=== PATIENT | female | born 1955 | race Caucasian/White ===

== ENCOUNTER 2016-12-24 16:40 | Inpatient (IN) ==
--- NOTE | 2016-12-24 19:55 | Emergency Department Note ---
Marcelo Maurer Brittany, am scribing for, and in the presence of, Jim Maciel MD 19:49. Raheem Maurer Robert M, MD, personally performed the services described in this documentation, ascribed by Sheba Robertson in my presence, and it is both accurate and complete [id number] . Arrival - Arrival Chief Complaint: Abdominal / Flank Pain Stated Complaint: stomach ache scale of 10 ED Nursing Triage Note: Pt c/o abd pain since back in November became worse today after she ate lunch. Mode of Arrival: Ambulatory Limitations: No Limitations Source: Patient, RN Notes Reviewed - History of Present Illness HPI Narrative: Patient is a 61 y/o white female presenting to the ED with c/o generalized abdominal pain with an onset of a month, worsening today. Patient reports that throughout this duration of pain, she has had two days with which she has had no pain. She states that during her mother's stay here she had a meal downstairs which caused her to have excruciating abdominal pain thereafter. She has seen her PCP about this pain and has been instructed to try Milk of Magnesia and Pepto Bismol, but neither of these have given her any relief. She reports having some melena type stools, but states that PCP told her these were a result of the Pepto Bismol. She has not had a CT Abdomen/Pelvis performed. Patient reports a history of Appendectomy, Total Hysterectomy. She denies history of Cholecystectomy. Patient has no other complaint/pain. Onset (ago): month(s) (1) Consistency: intermittent Severity: moderate Severity scale (1-10): 6 Quality: aching Allergies/Adverse Reactions: Allergies Allergy/AdvReac Type Severity Reaction Status Date / Time cephalexin [From Keflex] Allergy HIVES Verified 09/22/15 13:21 Hydromorphone Allergy Flushing Verified 09/22/15 13:21 [From Exalgo ER] Sulfa (Sulfonamide Allergy HIVES Verified 09/22/15 13:21 Antibiotics) Home Medications: Home Medications Medication Instructions Recorded Confirmed Type ARIPiprazole [Abilify] 5 mg PO BEDTIME 09/22/15 12/24/16 History Benazepril/Hydrochlorothiazide 1 each PO DAILY 09/22/15 12/24/16 History [Benazepril-Hctz 10-12.5 mg Tab] Duloxetine HCl [Duloxetine] 30 mg PO DAILY 09/22/15 12/24/16 History Gabapentin [Gabapentin] 600 mg PO QID 09/22/15 12/24/16 History Hydrocodone/Acetaminophen 1 each PO QID PRN 09/22/15 12/24/16 History [Hydrocodon-Acetaminophn 10-325] Meloxicam [Mobic] 15 mg PO DAILY 09/22/15 12/24/16 History Quetiapine Fumarate [Quetiapine 100 mg PO BEDTIME 09/22/15 12/24/16 History Fumarate] Rosuvastatin [Crestor] 10 mg PO DAILY 09/22/15 12/24/16 History Saxagliptin HCl/Metformin HCl 1 each PO BID 09/22/15 12/24/16 History [Kombiglyze Xr 2.5-1,000 mg Tab] buPROPion HCl [Bupropion Xl] 300 mg PO DAILY 09/22/15 12/24/16 History clonazePAM TAB [KlonoPIN] 0.5 mg PO TID 12/24/16 12/24/16 History Review of System - Review of System 12 point system: reviewed and no additional remarkable complaints except as stated - Review of System Constitutional: Absent: chills, fever Eyes: Absent: vision change Head/Ears/Nose/Throat: Absent: nasal drainage, sore throat Respiratory: Absent: respiratory distress Cardiovascular: Absent: chest pain, palpitations Gastrointestinal: Present: abdominal pain, melena. Absent: nausea, vomiting, diarrhea, constipation Genitourinary female: Absent: dysuria, frequency, urgency Musculoskeletal: Present: back pain. Absent: arm pain, neck pain Skin: Absent: rash Neurological: Absent: headache Psychiatric: Absent: anxiety, depression Hematological/Lymphatic: Absent: easy bleeding, easy bruising Medical,Surgical,& Family Hx - Medical History Cardio: History of: Hypertension Neurology: No history of: Seizures Endocrine: History of: Diabetes Mellitus (NIDDM) Musculoskeletal: History of: Back/Neck Problems - Surgical History Reproductive Surgeries: Surgical HX of;: Hysterectomy Orthopedic Surgeries: Surgical HX of;: Orthopedic Surgery (bilateral shoulder) - Social History Smoking Status: Never smoker Exam Vital Signs: Vital Signs Temperature 97.3 F L 12/24/16 20:09 Pulse Rate 81 12/24/16 20:09 Respiratory Rate 18 12/24/16 20:09 Blood Pressure 131/74 12/24/16 20:09 O2 Sat by Pulse Oximetry 100 12/24/16 16:54 - General General appearance: alert, in no apparent distress - Head Head exam: Present: atraumatic, normocephalic, normal inspection - Eye Eye exam: Present: normal appearance, PERRL, EOMI - ENT ENT exam: Present: normal exam, normal oropharynx - Neck Neck exam: Present: normal inspection, full ROM, trachea midline - Chest Chest inspection: Present: normal inspection, symmetric chest wall rise - Respiratory Respiratory exam: Present: normal lung sounds bilaterally. Absent: rales, rhonchi, wheezes - Cardiovascular Cardiovascular exam: Present: regular rate, normal rhythm, normal heart sounds. Absent: murmur, rubs, gallop - Abdominal Exam Abdominal exam: Present: soft, normal bowel sounds. Absent: distention, tenderness - Extremities Exam Extremities exam: Present: normal inspection - Back Exam Back exam: Present: normal inspection - Neurological Exam Neurological exam: Present: alert, oriented X3, CN II-XII intact. Absent: motor sensory deficit - Psychiatric Psychiatric exam: Present: normal affect, normal mood - Skin Skin exam: Present: warm, dry, intact, normal color Course - Consultations Consultation #1: Dr. Narinder Mo was paged and will evaluate the patient for admission. Time: 21:47 Results - Labs CBC & BMP: 12/24/16 19:55 12/24/16 19:55 Lab Results: I have reviewed the patients labs Labs: Lab Results WBC 11.4 T/CUMM (4-12) 12/24/16 19:55 RBC 3.07 MC/CUMM (3.8-5.5) L 12/24/16 19:55 Hgb 8.6 GM/DL (12.0-16.0) L 12/24/16 19:55 Hct 26.6 VOL% (35.7-47.0) L 12/24/16 19:55 MCV 86.6 FL (87-102) L 12/24/16 19:55 MCH 28 PG (27-34) 12/24/16 19:55 MCHC 32.3 GM/DL (32-36) 12/24/16 19:55 RDW 13.6 % (9.3-17.3) 12/24/16 19:55 Plt Count 609 T/CUMM (130-400) H 12/24/16 19:55 MPV 9.5 FL (9.6-12.0) L 12/24/16 19:55 Neut % (Auto) 72.4 % (38.7-73.9) 12/24/16 19:55 Lymph % (Auto) 17.5 % (21.3-54.2) L 12/24/16 19:55 [place] % (Auto) 5.9 % (1.7-12.7) 12/24/16 19:55 Eos % (Auto) 3.1 % (0.00-10.9) 12/24/16 19:55 Baso % (Auto) 0.5 % (0.0-0.8) 12/24/16 19:55 Neut # (Auto) 8.3 10*3/uL (1.4-7.4) H 12/24/16 19:55 Lymph # (Auto) 2.0 10*3/uL (1.4-4.0) 12/24/16 19:55 [place] # (Auto) 0.7 10*3/uL (0.11-0.8) 12/24/16 19:55 Eos # (Auto) 0.4 10*3/uL (0.0-0.87) 12/24/16 19:55 Baso # (Auto) 0.1 10*3/uL (0.0-0.2) 12/24/16 19:55 Immature Gran % 0.6 % 12/24/16 19:55 Nucleated RBC % 0.0 /100WBC 12/24/16 19:55 Immature Gran # 0.07 # 12/24/16 19:55 Nucleated RBCs # 0.00 10*3/uL 12/24/16 19:55 Sodium 141 MMOL/L (136-145) 12/24/16 19:55 Potassium 3.5 MMOL/L (3.5-5.1) 12/24/16 19:55 Chloride 104 MMOL/L (98-107) 12/24/16 19:55 Carbon Dioxide 25 MMOL/L (21-32) 12/24/16 19:55 Anion Gap 15.5 MMOL/L (5.0-15.0) H 12/24/16 19:55 BUN 14 MG/DL (7-18) 12/24/16 19:55 Creatinine 0.90 MG/DL (0.55-1.02) 12/24/16 19:55 GFR Calculation 64 ML/MIN 12/24/16 19:55 BUN/Creatinine Ratio 15.00 RATIO (6.00-20.00) 12/24/16 19:55 Glucose 131 MG/DL (74-106) H 12/24/16 19:55 Calculated Osmolality 283.3 MOS/KG (273-304) 12/24/16 19:55 Calcium 9.0 MG/DL (8.5-10.1) 12/24/16 19:55 Magnesium 2.0 MG/DL (1.8-2.4) 12/24/16 19:55 Amylase 45 U/L (25-115) 12/24/16 19:55 Lipase 318.0 U/L (73-393) 12/24/16 19:55 Urine Color Straw (Yellow) 12/24/16 19:55 Urine Appearance Clear (Clear) 12/24/16 19:55 Urine pH 5.0 (4.5-8.0) 12/24/16 19:55 Ur Specific [place] 1.010 (1.001-1.035) 12/24/16 19:55 Urine Protein Negative MG/DL 12/24/16 19:55 Urine Glucose (UA) Negative mg/dL (Negative) 12/24/16 19:55 Urine Ketones Negative mg/dL (Negative) 12/24/16 19:55 Urine Blood Moderate mg/dL (Negative) 12/24/16 19:55 Urine Nitrate Negative (Negative) 12/24/16 19:55 Urine Bilirubin Negative mg/dL (Negative) 12/24/16 19:55 Urine Urobilinogen < 2.0 EU/DL (0.2-1.0) H 12/24/16 19:55 Urine Leukocytes Small Issac/ul (Negative) H 12/24/16 19:55 Urine RBC 3 /HPF (0-4) 12/24/16 19:55 Urine WBC 10 /HPF (0-6) 12/24/16 19:55 Ur Squamous Epith Cells Occasional /HPF (0-10) 12/24/16 19:55 Ur Transition Epith Cell Occasional /HPF (<1) 12/24/16 19:55 Urine Bacteria Few /HPF (Few) 12/24/16 19:55 Urine Mucus Occasional /LPF (Occasional) 12/24/16 19:55 Ur Culture Indicated? Results to follow 12/24/16 19:55 Urine Opiates Screen Positive (Negative) H 12/24/16 19:55 Ur Barbiturates Screen Negative (Negative) 12/24/16 19:55 Ur Phencyclidine Scrn Negative (Negative) 12/24/16 19:55 U Amphetamine/Methamph Negative (Negative) 12/24/16 19:55 U Benzodiazepines Scrn Negative (Negative) 12/24/16 19:55 U Cocaine Metab Screen Negative (Negative) 12/24/16 19:55 U Cannabinoids Screen Negative (Negative) 12/24/16 19:55 Disposition Clinical Impression: Bilateral lower abdominal pain, GI bleed Case discussed with: patient, patient's family Disposition: Still a Patient Condition: Stable Time of Disposition: 21:48
[2016-12-24 20:11] LABS: Basophils # 0.1 10*3/uL (0.0-0.2); Basophils % 0.5 % (0.0-0.8); Eosinophils # 0.4 10*3/uL (0.0-0.87); Eosinophils % 3.1 % (0.00-10.9); Hematocrit 26.6 VOL% (35.7-47.0); Hemoglobin 8.6 GM/DL (12.0-16.0); Immature Granulocytes % 0.6 %; Immature Granulocytes Absolute 0.07 #; Lymphocytes % 17.5 % (21.3-54.2); Mean Corpuscular HGB Conc 32.3 GM/DL (32-36); Mean Corpuscular Hemoglobin 28 PG (27-34); Mean Corpuscular Volume 86.6 FL (87-102); Mean Platelet Volume 9.5 FL (9.6-12.0); Monocytes # 0.7 10*3/uL (0.11-0.8); Monocytes % 5.9 % (1.7-12.7); Neutrophils # 8.3 10*3/uL (1.4-7.4); Neutrophils % 72.4 % (38.7-73.9); Platelet Count 609 T/CUMM (130-400); Red Blood Count 3.07 MC/CUMM (3.8-5.5); Red Cell Distribution Width 13.6 % (9.3-17.3); White Blood Count 11.4 T/CUMM (4-12)
[2016-12-24 20:16] LABS: Apearance,Urine CLEAR (Clear); Bacteria,Urine Few /HPF (Few); Bilirubin,Urine Negative (Negative); Blood, Urine Moderate mg/dL (Negative); Glucose,Urine (UA) Negative (Negative); Ketones,Urine Negative (Negative); Mucus,Urine Occasional /LPF (Occasional); Nitrite,Urine Negative (Negative); Protein,Urine Negative; RBC,Urine 3 /HPF (0-4); Squamous Epithelial Cell,Urine Occasional /HPF (0-10); Transitional Epi Cells,Urine Occasional /HPF (<1); Urine Color Straw (Yellow); Urine Urobilinogen < 2.0 EU/DL (0.2-1.0); WBC,Urine 10 /HPF (0-6)
[2016-12-24 20:26] LABS: Barbiturates Screen,Urine Negative (Negative); Benzodiazepines Screen,Urine Negative (Negative); Cannabinoid Screen,Urine Negative (Negative); Opiate Screen,Urine Positive (Negative); Phencyclidine Screen,Urine Negative (Negative)
[2016-12-24 20:32] LABS: Osmolality,Calculated 283.3 MOS/KG (273-304); Potassium 3.5 MMOL/L (3.5-5.1)
[2016-12-24] MEDS ORDERED: ZALEPLON 5 MG CAPSULE PO PRN (21:50)
[2016-12-24] MEDS ORDERED: ONDANSETRON 4 MG/2 ML VIAL IV PRN (21:50)
[2016-12-24] MEDS ORDERED: MORPHINE 2 MG/1 ML SYRINGE IV PRN (21:50)
--- NOTE | 2016-12-24 21:58 | Hospitalist History & Physical ---
Assessment and Plan (1) Anemia Status: Acute Assessment and plan: Admit to inpatient status. GI consult in a.m.-Dr. Long N.p.o. after midnight. Protonix twice daily. Hold Mobic. Repeat CBC in a.m. Current Visit: Yes Qualifiers: Anemia type: unspecified type Qualified Code(s): D64.9 - Anemia, unspecified (2) Guaiac positive stools Status: Acute Current Visit: Yes (3) Bilateral lower abdominal pain Status: Acute Current Visit: Yes (4) GI bleed Status: Acute Current Visit: Yes (5) Anxiety Status: Chronic Current Visit: Yes (6) Depression Status: Chronic Current Visit: Yes Qualifiers: Major depression recurrence: recurrent Major depression episode severity: moderate (7) Chronic pain Status: Chronic Current Visit: Yes History of Present Illness Chief complaint: abdominal pain History of present illness: Ms. Ruiz is a 61 year old female presenting to the ED with c/o generalized abdominal pain with an onset of a month, worsening today. Patient reports that throughout this duration of pain, she has had two days with which she has had no pain. The pain is progressive and worsening. Located in the bilateral upper and lower quadrants. She states that during her mother's stay here she had a meal downstairs which caused her to have excruciating abdominal pain thereafter. She has seen her PCP about this pain and has been instructed to try Milk of Magnesia and Pepto Bismol, but neither of these have given her any relief. She reports having some black stools, but states that PCP told her these were a result of the Pepto Bismol. She has had a CT Abdomen/Pelvis performed today in the ED. she has seen Dr. Huynh in the past and is due for colonoscopy. She denies any previous history of GI pathology. She has had a Niesen fundoplication in the past. Her pain is worse approximately 2-3 hours after she eats. No associated vomiting. Patient reports a history of Appendectomy, Total Hysterectomy. She denies history of Cholecystectomy. Patient has no other complaint/pain. Home Medications Medication Instructions Recorded Confirmed Type ARIPiprazole [Abilify] 5 mg PO BEDTIME 09/22/15 12/24/16 History Benazepril/Hydrochlorothiazide 1 each PO DAILY 09/22/15 12/24/16 History [Benazepril-Hctz 10-12.5 mg Tab] Duloxetine HCl [Duloxetine] 30 mg PO DAILY 09/22/15 12/24/16 History Gabapentin [Gabapentin] 600 mg PO QID 09/22/15 12/24/16 History Hydrocodone/Acetaminophen 1 each PO QID PRN 09/22/15 12/24/16 History [Hydrocodon-Acetaminophn 10-325] Meloxicam [Mobic] 15 mg PO DAILY 09/22/15 12/24/16 History Quetiapine Fumarate [Quetiapine 100 mg PO BEDTIME 09/22/15 12/24/16 History Fumarate] Rosuvastatin [Crestor] 10 mg PO DAILY 09/22/15 12/24/16 History Saxagliptin HCl/Metformin HCl 1 each PO BID 09/22/15 12/24/16 History [Kombiglyze Xr 2.5-1,000 mg Tab] buPROPion HCl [Bupropion Xl] 300 mg PO DAILY 09/22/15 12/24/16 History clonazePAM TAB [KlonoPIN] 0.5 mg PO TID 12/24/16 12/24/16 History Allergies Allergy/AdvReac Type Severity Reaction Status Date / Time cephalexin [From Keflex] Allergy HIVES Verified 09/22/15 13:21 Hydromorphone Allergy Flushing Verified 09/22/15 13:21 [From Exalgo ER] Sulfa (Sulfonamide Allergy HIVES Verified 09/22/15 13:21 Antibiotics) Medical,Surgical,& Family Hx - Medical History Cardio: History of: Hypertension Psychological: History of: Anxiety Disorders, Depression, Psychiatric Problems Neurology: No history of: Seizures Endocrine: History of: Diabetes Mellitus (NIDDM) Musculoskeletal: History of: Back/Neck Problems - Surgical History Abdominal Surgeries: Surgical HX of: Abdominal Surgery (Carole fundoplication) Reproductive Surgeries: Surgical HX of;: Hysterectomy Orthopedic Surgeries: Surgical HX of;: Orthopedic Surgery (bilateral shoulder) - Family History Family History: Reports;: Family Hypertension - Social History Smoking Status: Never smoker Frequency of Alcohol Use: None Type of Drug Use: None Marital Status: Lives With:: Spouse Functional capacity: independent ambulation 12 point system: reviewed and no additional remarkable complaints except as stated - Gastrointestinal Gastrointestinal: Present: as per HPI, abdominal pain, change in bowel habits, loose stools Exam - Constitutional Vitals: Period Temp Pulse Resp BP Sys/Hoyt Pulse Ox Last 24 Hr 97.3 F-97.3 F 81-81 18-18 131-131/74-74 100 Exam: Constitutional System: Mild distress. No tremulousness. Very anxious Head: Normocephalic, atraumatic. Ears, Nose and Throat System: No pain or tenderness. No epistaxis or discharge Eyes System: Pupils equal, round, and reactive. Extraocular muscles intact. Neck: Supple, without adenopathy, No jugular venous distention. No thyromegaly, neck mass, or prior surgery apparent. Respiratory System: Chest clear to auscultation. Cardiovascular System: Heart with regular rate and rhythm. No murmur. GI System: Abdomen soft, tender to palpation left lower quadrant and epigastric area. Normo active bowel sounds present. Musculoskeletal System: limbs with no pedal edema. Full distal pulses. Neurological System: No discernable sensory deficit. No aphasia Psychiatric System: Conversation is rational Results - Labs CBC & BMP: 12/24/16 19:55 12/24/16 19:55 Lab Results: I have reviewed the past 24 hour labs - Diagnostic Findings Procedure: CT Abdomen and Pelvis: report reviewed by me, image reviewed by me Quality Measures - VTE Contraindication to Pharmacological VTE Prophylaxis: Active Bleeding
[2016-12-24] MEDS: SODIUM CHLORIDE 0.9% 1,000 ML IV SCH (23:14)
[2016-12-24] MEDS: PANTOPRAZOLE 40 MG TABLET PO SCH (23:15)
--- NOTE | 2016-12-25 06:25 | CT Report ---
Exam: CT abdomen pelvis w con Date: 12/24/2016 9:44 PM Comparison: 03/23/2012 Indication: Abdominal pain Total DLP: 476 mGy*cm Technical: Study was initially reviewed by [facility]. Images were obtained from the lung bases to the iliac crest continuation through the pelvis with 100 cc of Omnipaque 350 with axial sagittal coronal imaging available for review. Dose reduction was performed with decreasing kv and mA and automated exposure. Oral contrast was administered. Findings: Lung bases: No obvious infiltrates or effusions present. Heart is normal in size. Liver and Spleen: Liver hepatic and portal veins are normal. The spleen is intact. Gallbladder and Pancreas: Gallbladder is demonstrated without obvious stones. The pancreas is otherwise unremarkable Adrenals: Unremarkable Kidneys: Both kidneys are equally perfused and demonstrate no evidence for obstructive uropathy. Tiny area of decreased attenuation suggest a cyst in the posterior aspect of the right kidney this area measures approximately 11 mm. Nonobstructing stone present in the right kidney measures approximately 3 to 4 mm. Left kidney is unremarkable. Stomach: Incompletely distended with some thickening of the distal gastric antrum Retroperitoneum: No enlarged lymph nodes. Aorta and IVC: Vascular plaque in aorta iliac vessels. No obvious aneurysm IVC is patent Bowel and Mesentery: No evidence of bowel obstruction present. Duodenal diverticulum is present. Small colonic wall thickening. The appendix is not clearly demonstrated with no secondary signs of inflammation of the appendix. No obvious diverticulosis or diverticulitis with moderate fecal debris present. Pelvis: Bladder: Incompletely distended with contrast. Fluid: No free fluid identified. Lymph nodes: No enlarged lymph nodes. Pelvic organs: Unremarkable Osseous structures: No suspicious appearing osseous abnormalities noted. Impression: 1. Mild gastric wall thickening and colonic wall thickening. Possibility of a gastric ulcer cannot be excluded in. 2. Duodenal diverticulum also present. 3. Low density mass measuring approximately 11 mm could represent a small cyst of the right kidney 4. Right nephrolithiasis without obstruction. Endoscopy and/or upper GI series may be beneficial PROCEDURE INTERPRETED AT [facility] DEPARTMENT OF RADIOLOGY Final Report Signed by: Dr. Ad Nichols
[2016-12-25 07:20] LABS: Basophils % 0.5 % (0.0-0.8); Eosinophils # 0.3 10*3/uL (0.0-0.87); Eosinophils % 3.2 % (0.00-10.9); Hematocrit 24.2 VOL% (35.7-47.0); Immature Granulocytes % 0.5 %; Immature Granulocytes Absolute 0.04 #; Lymphocytes # 1.7 10*3/uL (1.4-4.0); Lymphocytes % 21.1 % (21.3-54.2); Mean Corpuscular HGB Conc 32.2 GM/DL (32-36); Mean Corpuscular Hemoglobin 28 PG (27-34); Mean Corpuscular Volume 86.4 FL (87-102); Mean Platelet Volume 10.5 FL (9.6-12.0); Monocytes # 0.6 10*3/uL (0.11-0.8); Monocytes % 6.8 % (1.7-12.7); Neutrophils # 5.6 10*3/uL (1.4-7.4); Neutrophils % 67.9 % (38.7-73.9); Platelet Count 563 T/CUMM (130-400); Red Cell Distribution Width 13.6 % (9.3-17.3); White Blood Count 8.2 T/CUMM (4-12)
[2016-12-25 07:21] LABS: Hemoglobin 7.8 GM/DL (12.0-16.0)
[2016-12-25 07:52] LABS: Albumin 3.1 G/DL (3.4-5.0); Bilirubin,Total 0.8 MG/DL (0.2-1.0); Calcium 8.7 MG/DL (8.5-10.1); Magnesium 1.8 MG/DL (1.8-2.4); Potassium 3.8 MMOL/L (3.5-5.1); Total Protein 5.9 G/DL (6.4-8.3)
[2016-12-25] MEDS: SODIUM CHLORIDE 0.9% 1,000 ML IV SCH ×2 (07:55→16:04)
[2016-12-25] MEDS ORDERED: HCTZ PO SCH (09:00)
[2016-12-25] MEDS ORDERED: BENAZEPRIL PO SCH (09:00)
--- NOTE | 2016-12-25 11:04 | Gastrointestinal Consult Note ---
<Windy Garza - Last Filed: 12/25/16 10:59> Assessment and Plan (1) Abdominal pain Status: Acute Assessment and plan: 12/25-1 month history of abdominal pain, precipitated by a meal ingestion. No prior history of PUD. Reports of melena 1 month. Noted findings of anemia today. CT of abdomen noted to show gastric wall thickening and duodenal diverticulum. Plan for tentative EGD today or tomorrow contingent on scheduling. Plan an addendum to follow by Dr. Alexandre vela Current Visit: Yes (2) Anemia Status: Acute Assessment and plan: 12/25-findings of anemia with hemoglobin 7.8, no overt bleeding. Check stools for occult blood. Continue to monitor H&H and transfuse as necessary. Plan an addendum to follow by Dr. Schroeder. Current Visit: Yes Qualifiers: Anemia type: unspecified type Qualified Code(s): D64.9 - Anemia, unspecified History of Present Illness Chief complaint: Abdominal pain, melena History of present illness: Ms. Ruiz is a 61 year old female who was admitted to the hospital with abdominal pain 1 month. Patient states that approximately 1 month ago she had a fairly sudden onset of upper abdominal pain. She states the pain seems to be precipitated by meals and begins within 2-3 hours after ingestion of a meal. The pain is severe in nature at times and at other times is more of an aching, gnawing pain. She denies any nausea or vomiting associated with this. She states that nothing seems to help the pain as well. She presented to her PCP recently and discussed the abdominal pain and findings of recent dark stools. She had been taking occasional Pepto-Bismol and was told by her PCP that the dark stools were related to this and gave her something for reflux. She states that nothing seemed to help the pain therefore she presented to the emergency room on yesterday for further evaluation. She states that she has had continued dark stools since onset of the pain a month ago and has taken Pepto- Bismol only on occasion. She denies any increased belching, bloating, dysphagia , or worsening reflux symptoms. She denies any weight loss, fever, or chills. She denies a prior history of PUD. She does take Mobic daily and has done this for the last couple of years. Denies any OTC NSAIDs. She has a history of Rey fundoplication 5 years ago done in [place]. Her last colonoscopy was done by Dr. Huynh in the last several years at a [facility]. She denies any history of gallbladder problems in the past but states her daughter recently had hers removed. On admission hemoglobin was noted 8.6 now down at 7.8. No reports of hematochezia. CT of abdomen with contrast on admission noted with findings of gastric wall thickening and duodenal diverticulum. No other acute findings noted. Home Medications Medication Instructions Recorded Confirmed Type ARIPiprazole [Abilify] 5 mg PO BEDTIME 09/22/15 12/24/16 History Benazepril/Hydrochlorothiazide 1 each PO DAILY 09/22/15 12/24/16 History [Benazepril-Hctz 10-12.5 mg Tab] Duloxetine HCl [Duloxetine] 30 mg PO DAILY 09/22/15 12/24/16 History Gabapentin [Gabapentin] 600 mg PO QID 09/22/15 12/24/16 History Hydrocodone/Acetaminophen 1 each PO QID PRN 09/22/15 12/24/16 History [Hydrocodon-Acetaminophn 10-325] Meloxicam [Mobic] 15 mg PO DAILY 09/22/15 12/24/16 History Quetiapine Fumarate [Quetiapine 100 mg PO BEDTIME 09/22/15 12/24/16 History Fumarate] Rosuvastatin [Crestor] 10 mg PO DAILY 09/22/15 12/24/16 History Saxagliptin HCl/Metformin HCl 1 each PO BID 09/22/15 12/24/16 History [Kombiglyze Xr 2.5-1,000 mg Tab] buPROPion HCl [Bupropion Xl] 300 mg PO DAILY 09/22/15 12/24/16 History clonazePAM TAB [KlonoPIN] 0.5 mg PO TID 12/24/16 12/24/16 History Allergies Allergy/AdvReac Type Severity Reaction Status Date / Time cephalexin [From Keflex] Allergy HIVES Verified 09/22/15 13:21 Hydromorphone Allergy Flushing Verified 09/22/15 13:21 [From Exalgo ER] Sulfa (Sulfonamide Allergy HIVES Verified 09/22/15 13:21 Antibiotics) Medical,Surgical,& Family Hx - Medical History Cardio: History of: Hypertension Psychological: History of: Anxiety Disorders, Depression, Psychiatric Problems Neurology: No history of: Seizures HEENT: History of: Eye Problem (wears reading glasses) Endocrine: History of: Diabetes Mellitus (NIDDM) Respiratory: History of: Obstructive Sleep Apnea Genitourinary: History of: Kidney Stones Gastrointestinal: History of: Diverticulitis/ Diverticulosis, GERD Musculoskeletal: History of: Back/Neck Problems, Herniated Disk Comment Only: Musculoskeletal Problems (arthritis back) Hematology: History of: Anemia No history of: Blood Transfusion Reaction Other: No history of: Cancer - Surgical History Thoracic Surgeries: Surgical HX of;: Lithotripsy Patient denies;: Organ Transplant HEENT Surgeries: Surgical HX of: Tonsilectomy & Adenoidectomy Patient denies: Eye Surgery Abdominal Surgeries: Surgical HX of: Abdominal Surgery (Carole fundoplication), Appendectomy, EGD Patient denies: Cholecystectomy Reproductive Surgeries: Surgical HX of;: Hysterectomy Orthopedic Surgeries: Surgical HX of;: Orthopedic Surgery (bilateral shoulder) - Family History Family History: Reports;: Family Hypertension - Social History Smoking Status: Never smoker Frequency of Alcohol Use: None Type of Drug Use: None 12 point system: reviewed and no additional remarkable complaints except as stated - Constitutional Constitutional: Present: as per HPI - EENT Eyes: Present: as per HPI Ears: Present: as per HPI Nose, mouth and throat: Present: as per HPI - Cardiovascular Cardiovascular: Present: as per HPI - Respiratory Respiratory: Present: as per HPI - Gastrointestinal Gastrointestinal: Present: as per HPI, abdominal pain, melena - Genitourinary Genitourinary: Present: as per HPI - Musculoskeletal Musculoskeletal: Present: as per HPI - Neurological Neurological: Present: as per HPI - Psychiatric Psychiatric: Present: as per HPI - Endocrine Endocrine: Present: as per HPI - Hematologic/Lymphatic Hematologic/Lymphatic: Present: as per HPI Exam - Constitutional Vitals: Period Temp Pulse Resp BP Sys/Hoyt Pulse Ox Last 24 Hr 98.4 F-98.8 F 78-92 18-20 122-157/64-74 96-98 General appearance: normal weight, no acute distress - Head Head exam: Present: normal inspection, normocephalic - Eye Eye exam: Present: other (Lids and conjunctive are unremarkable). Absent: scleral icterus - ENT ENT exam: Present: normal exam, normal oropharynx - Neck Neck exam: Present: normal inspection - Respiratory Respiratory exam: Present: clear to auscultation bilaterally. Absent: rales, rhonchi, wheezes - Cardiovascular Cardiovascular exam: Present: regular rate and rhythm. Absent: diastolic murmur , JVD, systolic murmur - GI/Abdominal GI/Abdominal exam: Present: normal bowel sounds, tenderness, soft. Absent: ascites, distended, mass, organomegaly - Extremities Exam Extremities exam: Present: normal inspection, full ROM - Back Exam Back exam: Present: normal inspection - Neurological Exam Neurological exam: Present: alert, oriented X3 - Psychiatric Psychiatric exam: Present: normal affect, normal mood - Skin Skin exam: Present: normal color, warm, dry Results - Labs CBC & BMP: 12/25/16 06:36 12/25/16 06:36 Lab Results: I have reviewed the past 24 hour labs Quality Measures - VTE Contraindication to Pharmacological VTE Prophylaxis: Active Bleeding - Stroke Symptom Onset Unknown: No <Oracio Schroeder - Last Filed: 12/25/16 11:25> History of Present Illness Chief complaint: 3030 History of present illness: Ms. Ruiz is a 61 year old female Exam - Constitutional Vitals: Period Temp Pulse Resp BP Sys/Hoyt Pulse Ox Last 24 Hr 98.4 F-98.8 F 78-92 18-20 122-157/64-74 96-98 Results - Labs CBC & BMP: 12/25/16 06:36 12/25/16 06:36
[2016-12-25] MEDS: ROSUVASTATIN 10 MG TABLET PO SCH (11:22)
[2016-12-25] MEDS: GABAPENTIN 600 MG TABLET PO SCH ×4 (11:22→22:15)
[2016-12-25] MEDS: clonazePAM 0.5 MG TABLET PO SCH ×3 (11:23→22:16)
[2016-12-25] MEDS: DULoxetine 30 MG CAPSULE PO SCH (11:23)
[2016-12-25] MEDS: PANTOPRAZOLE 40 MG TABLET PO SCH ×2 (11:24→22:16)
[2016-12-25] MEDS: BENAZEPRIL 10 MG TABLET PO SCH (12:57)
[2016-12-25] MEDS: hydroCHLOROthiazide 12.5 MG CAPSULE PO SCH (12:57)
--- NOTE | 2016-12-25 16:05 | Hospitalist Progress Note ---
Assessment and Plan - Time spent with patient Time spent with patient: Greater than 30 minutes (1) Anemia Status: Acute Assessment and plan: Obtain anemia panel tomorrow. Current Visit: Yes Qualifiers: Anemia type: unspecified type Qualified Code(s): D64.9 - Anemia, unspecified (2) GI bleed Status: Acute Assessment and plan: Continue PPI. Defer to GI. Current Visit: Yes Hospitalist: Subjective Interval history: No complaints. Admitted for evaluation of melena. Exam - Constitutional Vitals: Period Temp Pulse Resp BP Sys/Hoyt Pulse Ox Last 24 Hr 98.4 F-98.8 F 78-92 18-20 122-157/64-74 95-98 General appearance: no acute distress - Head Head exam: Present: normocephalic, atraumatic - Eye Eye exam: Present: EOMI Pupils: Present: BERNARDO - ENT ENT exam: Present: normal exam - Neck Neck exam: Present: normal inspection - Respiratory Respiratory exam: Present: clear to auscultation bilaterally. Absent: rhonchi, wheezes - Cardiovascular Cardiovascular exam: Present: regular rate and rhythm. Absent: gallop, rubs, systolic murmur - GI/Abdominal GI/Abdominal exam: Present: normal bowel sounds, soft. Absent: distended, firm , guarding, tenderness, rebound - Extremities Exam Extremities exam: Present: normal inspection. Absent: calf tenderness, edema Results - Labs CBC & BMP: 12/25/16 06:36 12/25/16 06:36 Lab Results: I have reviewed the past 24 hour labs Quality Measures - VTE Contraindication to Pharmacological VTE Prophylaxis: Active Bleeding - Stroke Symptom Onset Unknown: No
[2016-12-25] MEDS ORDERED: QUEtiapine 100 MG TABLET PO SCH (21:00)
[2016-12-25] MEDS: ARIPiprazole 5 MG TABLET PO SCH (22:18)
[2016-12-26] MEDS: SODIUM CHLORIDE 0.9% 1,000 ML IV SCH ×2 (00:08→14:33)
[2016-12-26 05:06] LABS: Basophils % 0.5 % (0.0-0.8); Eosinophils # 0.2 10*3/uL (0.0-0.87); Eosinophils % 3.4 % (0.00-10.9); Hematocrit 22.3 VOL% (35.7-47.0); Immature Granulocytes % 0.5 %; Immature Granulocytes Absolute 0.03 #; Lymphocytes # 1.9 10*3/uL (1.4-4.0); Lymphocytes % 33.5 % (21.3-54.2); Mean Corpuscular HGB Conc 31.4 GM/DL (32-36); Mean Corpuscular Hemoglobin 28 PG (27-34); Mean Corpuscular Volume 88.1 FL (87-102); Mean Platelet Volume 8.9 FL (9.6-12.0); Monocytes # 0.6 10*3/uL (0.11-0.8); Monocytes % 10.4 % (1.7-12.7); Neutrophils # 2.9 10*3/uL (1.4-7.4); Neutrophils % 51.7 % (38.7-73.9); Platelet Count 466 T/CUMM (130-400); Red Blood Count 2.53 MC/CUMM (3.8-5.5); Red Cell Distribution Width 13.8 % (9.3-17.3); White Blood Count 5.7 T/CUMM (4-12)
[2016-12-26 05:34] LABS: Calcium 8.2 MG/DL (8.5-10.1); Osmolality,Calculated 289.4 MOS/KG (273-304); Potassium 3.5 MMOL/L (3.5-5.1)
[2016-12-26 05:41] LABS: % Iron Saturation 6.7 % (18-50); Ferritin 16.6 ng/ml (8-252)
[2016-12-26 05:46] LABS: Folate 14.2 NG/ML (5.4-24.0)
[2016-12-26] MEDS ORDERED: SODIUM CHLORIDE 0.9% 250 ML IV PRN ×2 (08:57→17:49)
[2016-12-26] MEDS ORDERED: PROPOFOL 200 MG/20 ML VIAL IV ONE (11:09)
[2016-12-26] MEDS ORDERED: LIDOCAINE 1% 5 ML VIAL ONE (11:09)
--- NOTE | 2016-12-26 12:11 | History and Physical Update ---
History and Physical Update - Physical Exam Mental Status: alert and oriented Heart: regular rate and rhythm Lung: clear to auscultation Abdomen: within normal limits Vitals: within normal limits
--- NOTE | 2016-12-26 12:13 | Operative Note ---
Date of procedure: 12/26/16 Pre-op diagnosis: Melena and abnormal CT Procedure: EGD 61-year-old female admitted with abdominal pain abnormal CT suggesting gastric thickening now for upper endoscopy to further evaluate. She has frequently been taking nonsteroidals. Informed symptoms obtained for the patient. She was sedated with MAC anesthesia per anesthesia protocol. Patient placed in left lateral decubitus position the Olympus flexible video upper endoscope was inserted into the oral cavity under direct vision the esophagus was intubated. Findings: Esophagus-normal proximal mid esophageal mucosa distal esophagus small hiatal hernia no significant esophagitis, stricture, varices or Quiñones's was identified. Stomach-normal insufflation normal mucosa to direct retroflexed views of the body, fundus, antrum and cardia the stomach. No blood present in the stomach. Pylorus-normal Duodenum-large ulcer approximately 2 cm in size brennan base with no visible vessel in the bulb of the duodenum. The remaining duodenum is normal from second portion of the duodenum to the third portion of duodenum. Scope was withdrawn the ulcer again is brennan base with no visible vessel no active bleeding. The procedure terminated placed our procedure well she is discharged recovery in good condition. Postop diagnosis: 1. Acute duodenal ulcer without visible vessel-continue PPI treatment and observe H&H. #2 check stools for H. pylori #3 plan repeat endoscopy in 6-8 weeks to verify healing of this large ulcer. #4 discontinue nonsteroidals Anesthesia: MAC Surgeon / Physician: Oracio Schroeder Estimated blood loss: none Specimens: none sent Condition: stable Disposition: post procedure unit Results - Labs CBC & BMP: 12/26/16 04:52 12/26/16 04:52 Discharge Plan - Discharge Medications No Action Saxagliptin HCl/Metformin HCl [Kombiglyze Xr 2.5-1,000 mg Tab] 1 each PO BID Meloxicam [Mobic] 15 mg PO DAILY Duloxetine HCl [Duloxetine] 30 mg PO DAILY Rosuvastatin [Crestor] 10 mg PO DAILY Hydrocodone/Acetaminophen [Hydrocodon-Acetaminophn 10-325] 1 each PO QID PRN PRN Reason: Pain Gabapentin [Gabapentin] 600 mg PO QID Benazepril/Hydrochlorothiazide [Benazepril-Hctz 10-12.5 mg Tab] 1 each PO DAILY ARIPiprazole [Abilify] 5 mg PO BEDTIME Quetiapine Fumarate [Quetiapine Fumarate] 100 mg PO BEDTIME buPROPion HCl [Bupropion Xl] 300 mg PO DAILY clonazePAM TAB [KlonoPIN] 0.5 mg PO TID - Follow Up or Referral - Forms/Instructions
--- NOTE | 2016-12-26 12:18 | Anesthesia Post-Op ---
Anesthesia Post OP - Post Ansesthetic Evaluation Patient seen in post op: Yes Resp: within normal limits CV: within normal limits Mental: within normal limits Temp: within normal limits [id number]: within normal limits Nausea and Vomiting: within normal limits Pain: within normal limits
--- NOTE | 2016-12-26 13:55 | Physician Query Form ---
CLICK EDIT DOCUMENT TO SELECT QUERY ANSWER --> OK --> SIGN Tammy Maciel RN, CCDS Certified Clinical Laundry Operator W) [phone] (f) [phone] [email or web address] PROVIDERS: Make your selection(s) from the choices in EACH section by typing an "x" and enter comments in the comment section. Please use your independent medical judgment in providing your response. This request does not imply that any particular answer is desired or expected. CLINICAL INDICATORS: (Providers should not edit this section) The medical record indicates that the patient was admitted with abd pain/ Melena , EGD "Acute duodenal ulcer without visible vessel", HH dropped to 7.0/22.3 and the patient was given blood. Based on the above, could you clarify which of the following conditions you are evaluating, treating, and/or monitoring? ( ) Blood loss anemia ( ) acute ( ) chronic ( ) acute on chronic (x ) Acute blood loss anemia on baseline chronic anemia ( ) Acute blood loss anemia as a complication of a procedure ( ) Iron deficiency anemia not associated with blood loss ( ) Dilutional anemia due to IV fluids ( ) Anemia due to chemotherapy ( ) Anemia due to neoplastic disease ( ) Anemia due to chronic kidney disease ( ) Pernicious anemia ( ) Aplastic anemia ( ) Hemolytic anemia ( ) immune ( ) non-immune - please specify cause: ( ) Anemia due to other condition, please specify: ( ) Clinically unable to determine COMMENTS: PLEASE ALSO DOCUMENT RESPONSE IN PROGRESS NOTES AND/OR DISCHARGE SUMMARY Use of terms such as suspected, likely, or probable (associated with a specific diagnosis that is being evaluated, monitored, or treated as if it exists) are acceptable and can be restated in the discharge summary if not ruled out. MTDD
--- NOTE | 2016-12-26 13:56 | Physician Query Form ---
CLICK EDIT DOCUMENT TO SELECT QUERY ANSWER --> OK --> SIGN Tammy Maciel RN, CCDS Certified Clinical Knock Out Hand W) [phone] (f) [phone] [email or web address] PROVIDERS: Make your selection(s) from the choices in EACH section by typing an "x" and enter comments in the comment section. Please use your independent medical judgment in providing your response. This request does not imply that any particular answer is desired or expected. CLINICAL INDICATORS: (Providers should not edit this section) The medical record indicates that the patient was admitted with abd pain, Preliminary Urine Culture "Gram Positive Cocci" > 100,000, Urine WBC 10, Urine Leukocytes "Small H" and the patient is on Levaquin. Based on the above, could you clarify the appropriate diagnosis, if significant , that supports the above abnormalities and additional evaluation, monitoring, and/or treatment rendered: ( ) Patient is not being treated or monitored for UTI (x ) Patient is being treated or monitored for UTI ( ) Other, please specify: ( ) Clinically unable to determine COMMENTS: PLEASE ALSO DOCUMENT RESPONSE IN PROGRESS NOTES AND/OR DISCHARGE SUMMARY Use of terms such as suspected, likely, or probable (associated with a specific diagnosis that is being evaluated, monitored, or treated as if it exists) are acceptable and can be restated in the discharge summary if not ruled out. MTDD
[2016-12-26] MEDS: clonazePAM 0.5 MG TABLET PO SCH ×3 (14:02→20:35)
[2016-12-26] MEDS: GABAPENTIN 600 MG TABLET PO SCH ×4 (14:03→20:35)
[2016-12-26] MEDS: hydroCHLOROthiazide 12.5 MG CAPSULE PO SCH (14:23)
[2016-12-26] MEDS: PANTOPRAZOLE 40 MG TABLET PO SCH (14:25)
[2016-12-26] MEDS: BENAZEPRIL 10 MG TABLET PO SCH (14:26)
[2016-12-26] MEDS: DULoxetine 30 MG CAPSULE PO SCH (14:26)
[2016-12-26] MEDS: ROSUVASTATIN 10 MG TABLET PO SCH (14:27)
[2016-12-26] MEDS: PANTOPRAZOLE 40 MG VIAL IV SCH ×2 (14:38→20:34)
[2016-12-26] MEDS: LEVOFLOXACIN INJ 500 MG in PREMIX 1 EACH IV SCH (14:40)
[2016-12-26] MEDS: CYANOCOBALAMIN 1000 MCG/1 ML VIAL IM SCH (14:45)
--- NOTE | 2016-12-26 15:07 | Hospitalist Progress Note ---
Assessment and Plan (1) PUD (peptic ulcer disease) Status: Acute Assessment and plan: Continue current management and avoid NSAIDs. Current Visit: Yes (2) Anemia Status: Acute Assessment and plan: Iron deficiency anemia with vitamin B12 deficiency and folate deficiency. Hemoglobin 7 today patient will require blood products. Current Visit: Yes Qualifiers: Anemia type: unspecified type Qualified Code(s): D64.9 - Anemia, unspecified Hospitalist: Subjective Interval history: She has just returned from an EGD. She has no complaints. Exam - Constitutional Vitals: Period Temp Pulse Resp BP Sys/Hoyt Pulse Ox Last 24 Hr 97.1 F-99.3 F 66-83 9-20 106-165/53-080 95-100 General appearance: no acute distress - Head Head exam: Present: normocephalic, atraumatic - Eye Eye exam: Present: EOMI Pupils: Present: BERNARDO - ENT ENT exam: Present: normal exam - Neck Neck exam: Present: normal inspection - Respiratory Respiratory exam: Present: clear to auscultation bilaterally. Absent: rhonchi, wheezes - Cardiovascular Cardiovascular exam: Present: regular rate and rhythm. Absent: gallop, rubs, systolic murmur - GI/Abdominal GI/Abdominal exam: Present: normal bowel sounds, soft. Absent: distended, firm , guarding, tenderness, rebound - Extremities Exam Extremities exam: Present: normal inspection. Absent: calf tenderness, edema Results - Labs CBC & BMP: 12/26/16 04:52 12/26/16 04:52 Lab Results: I have reviewed the past 24 hour labs Quality Measures - VTE Contraindication to Pharmacological VTE Prophylaxis: Active Bleeding - Stroke Symptom Onset Unknown: No
[2016-12-26 18:57] LABS: Hemoglobin 9.9 GM/DL (12.0-16.0)
[2016-12-26] MEDS: ARIPiprazole 5 MG TABLET PO SCH (20:35)
[2016-12-27] MEDS: SODIUM CHLORIDE 0.9% 1,000 ML IV SCH ×3 (00:18→16:43)
[2016-12-27 06:36] LABS: Basophils % 0.7 % (0.0-0.8); Eosinophils # 0.3 10*3/uL (0.0-0.87); Eosinophils % 4.5 % (0.00-10.9); Hematocrit 31.1 VOL% (35.7-47.0); Hemoglobin 9.8 GM/DL (12.0-16.0); Immature Granulocytes % 0.3 %; Immature Granulocytes Absolute 0.02 #; Lymphocytes # 1.4 10*3/uL (1.4-4.0); Lymphocytes % 24.4 % (21.3-54.2); Mean Corpuscular HGB Conc 31.5 GM/DL (32-36); Mean Corpuscular Hemoglobin 26 PG (27-34); Mean Platelet Volume 9.7 FL (9.6-12.0); Monocytes # 0.5 10*3/uL (0.11-0.8); Monocytes % 8.9 % (1.7-12.7); Neutrophils # 3.5 10*3/uL (1.4-7.4); Neutrophils % 61.2 % (38.7-73.9); Platelet Count 499 T/CUMM (130-400); Red Blood Count 3.84 MC/CUMM (3.8-5.5); Red Cell Distribution Width 16.3 % (9.3-17.3); White Blood Count 5.7 T/CUMM (4-12)
[2016-12-27] MEDS: hydroCHLOROthiazide 12.5 MG CAPSULE PO SCH (08:18)
[2016-12-27] MEDS: clonazePAM 0.5 MG TABLET PO SCH ×3 (08:19→20:19)
[2016-12-27] MEDS: GABAPENTIN 600 MG TABLET PO SCH ×4 (08:19→20:19)
[2016-12-27] MEDS: ROSUVASTATIN 10 MG TABLET PO SCH (08:19)
[2016-12-27] MEDS: BENAZEPRIL 10 MG TABLET PO SCH (08:19)
[2016-12-27] MEDS: FOLIC ACID 1 MG TABLET PO SCH (08:19)
[2016-12-27] MEDS: DULoxetine 30 MG CAPSULE PO SCH (08:19)
[2016-12-27] MEDS: LEVOFLOXACIN INJ 500 MG in PREMIX 1 EACH IV SCH (08:22)
[2016-12-27] MEDS: PANTOPRAZOLE 40 MG VIAL IV SCH ×2 (08:28→20:18)
[2016-12-27] MEDS: CYANOCOBALAMIN 1000 MCG/1 ML VIAL IM SCH (08:31)
--- NOTE | 2016-12-27 10:38 | Gastrointestinal Progress Note ---
<GregWindy Shiloh - Last Filed: 12/27/16 10:35> Assessment and Plan (1) Abdominal pain Status: Acute Assessment and plan: 12/27-EGD findings noted. Hgb 938. For repeat EGD in 6-8 weeks to reevaluate ulcer healing. Discharge home on Protonix BID. Plan and addendum to follow by Dr Schroeder. 12/25-1 month history of abdominal pain, precipitated by a meal ingestion. No prior history of PUD. Reports of melena 1 month. Noted findings of anemia today. CT of abdomen noted to show gastric wall thickening and duodenal diverticulum. Plan for tentative EGD today or tomorrow contingent on scheduling. Plan an addendum to follow by Dr. Schroeder peer Current Visit: Yes (2) Anemia Status: Acute Assessment and plan: 12/25-findings of anemia with hemoglobin 7.8, no overt bleeding. Check stools for occult blood. Continue to monitor H&H and transfuse as necessary. Plan an addendum to follow by Dr. Schroeder. Current Visit: Yes Qualifiers: Anemia type: unspecified type Qualified Code(s): D64.9 - Anemia, unspecified Gastroenterology - PN: Subj Interval history: CC: Melena Pt is seen awake and alert. States she is feeling better today. She denies any abdominal pain, nausea or vomiting. Abdomen is soft, nontender. She is tolerating her diet and wishes to try to eat more. Her hemoglobin is stable at 9.8 without any overt bleeding. EGD report noted. Discussed cessation of NSAID use with patient. ROS: Denies SOB or chest pain Exam (Progress Note) - Constitutional Vitals: Period Temp Pulse Resp BP Sys/Hoyt Pulse Ox Last 24 Hr 97.1 F-99.2 F 65-83 9-20 125-165/56-080 94-100 General appearance: normal weight, no acute distress - Head Head exam: Present: normal inspection, normocephalic - Eye Eye exam: Present: other (lids and conjunctiva unremarkable). Absent: scleral icterus - ENT ENT exam: Present: normal exam, normal oropharynx - Neck Neck exam: Present: normal inspection - Respiratory Respiratory exam: Present: clear to auscultation bilaterally. Absent: rales, rhonchi, wheezes - Cardiovascular Cardiovascular exam: Present: regular rate and rhythm. Absent: diastolic murmur , JVD, systolic murmur - GI/Abdominal GI/Abdominal exam: Present: normal bowel sounds, soft. Absent: ascites, distended, mass, organomegaly, tenderness - Extremities Exam Extremities exam: Present: normal inspection, full ROM - Back Exam Back exam: Present: normal inspection - Neurological Exam Neurological exam: Present: alert, oriented X3 - Psychiatric Psychiatric exam: Present: normal affect, normal mood - Skin Skin exam: Present: normal color, warm, dry Results - Labs CBC & BMP: 12/27/16 06:04 12/26/16 04:52 Lab Results: I have reviewed the past 24 hour labs <Oracio Schroeder - Last Filed: 12/27/16 17:59> Exam (Progress Note) - Constitutional Vitals: Period Temp Pulse Resp BP Sys/Hoyt Pulse Ox Last 24 Hr 97.2 F-99.2 F 65-75 17-20 125-150/56-86 94-98 Results - Labs CBC & BMP: 12/27/16 06:04 12/26/16 04:52
--- NOTE | 2016-12-27 13:32 | Hospitalist Progress Note ---
Assessment and Plan - Time spent with patient Time spent with patient: Greater than 30 minutes (1) PUD (peptic ulcer disease) Status: Acute Assessment and plan: Continue current management and avoid NSAIDs. Current Visit: Yes (2) Anemia Status: Acute Assessment and plan: Iron deficiency anemia with vitamin B12 deficiency and folate deficiency. Hemoglobin stable. Current Visit: Yes Qualifiers: Anemia type: unspecified type Qualified Code(s): D64.9 - Anemia, unspecified Hospitalist: Subjective Interval history: No complaints or overnight events. Exam - Constitutional Vitals: Period Temp Pulse Resp BP Sys/Hoyt Pulse Ox Last 24 Hr 97.2 F-99.2 F 65-76 17-20 125-154/56-93 94-98 General appearance: no acute distress - Head Head exam: Present: normocephalic, atraumatic - Eye Eye exam: Present: EOMI Pupils: Present: BERNARDO - ENT ENT exam: Present: normal exam - Neck Neck exam: Present: normal inspection - Respiratory Respiratory exam: Present: clear to auscultation bilaterally. Absent: rhonchi, wheezes - Cardiovascular Cardiovascular exam: Present: regular rate and rhythm. Absent: gallop, rubs, systolic murmur - GI/Abdominal GI/Abdominal exam: Present: normal bowel sounds, soft. Absent: distended, firm , guarding, tenderness, rebound - Extremities Exam Extremities exam: Present: normal inspection. Absent: calf tenderness, edema Results - Labs CBC & BMP: 12/27/16 06:04 12/26/16 04:52 Lab Results: I have reviewed the past 24 hour labs Quality Measures - VTE Contraindication to Pharmacological VTE Prophylaxis: Active Bleeding - Stroke Symptom Onset Unknown: No
[2016-12-27] MEDS: ARIPiprazole 5 MG TABLET PO SCH (20:19)
[2016-12-28] MEDS: SODIUM CHLORIDE 0.9% 1,000 ML IV SCH ×2 (00:55→08:50)
[2016-12-28] MEDS: ROSUVASTATIN 10 MG TABLET PO SCH (08:51)
[2016-12-28] MEDS: FOLIC ACID 1 MG TABLET PO SCH (08:52)
[2016-12-28] MEDS: DULoxetine 30 MG CAPSULE PO SCH (08:52)
[2016-12-28] MEDS: clonazePAM 0.5 MG TABLET PO SCH ×2 (08:53→14:26)
[2016-12-28] MEDS: hydroCHLOROthiazide 12.5 MG CAPSULE PO SCH (08:53)
[2016-12-28] MEDS: GABAPENTIN 600 MG TABLET PO SCH ×2 (08:54→12:57)
[2016-12-28] MEDS: CYANOCOBALAMIN 1000 MCG/1 ML VIAL IM SCH (08:54)
[2016-12-28] MEDS: BENAZEPRIL 10 MG TABLET PO SCH (08:54)
[2016-12-28] MEDS: PANTOPRAZOLE 40 MG VIAL IV SCH (09:00)
[2016-12-28] MEDS: LEVOFLOXACIN INJ 500 MG in PREMIX 1 EACH IV SCH (09:01)
--- NOTE | 2016-12-28 10:28 | Gastrointestinal Progress Note ---
<Windy Garza - Last Filed: 12/28/16 10:26> Assessment and Plan (1) Abdominal pain Status: Acute Assessment and plan: 12/28-no reports abdominal pain. Tolerating diet. For possible discharge home today. Plan an addendum to followed by Dr. Schroeder 12/27-EGD findings noted. Hgb 9.8. For repeat EGD in 6-8 weeks to reevaluate ulcer healing. Discharge home on Protonix BID. Plan and addendum to follow by Dr Schroeder. 12/25-1 month history of abdominal pain, precipitated by a meal ingestion. No prior history of PUD. Reports of melena 1 month. Noted findings of anemia today. CT of abdomen noted to show gastric wall thickening and duodenal diverticulum. Plan for tentative EGD today or tomorrow contingent on scheduling. Plan an addendum to follow by Dr. Schroeder peer Current Visit: Yes (2) Anemia Status: Acute Assessment and plan: 12/28-repeat H&H pending at present time. No further overt bleeding. Plan an addendum to follow by Dr. Schroeder. 12/25-findings of anemia with hemoglobin 7.8, no overt bleeding. Check stools for occult blood. Continue to monitor H&H and transfuse as necessary. Plan an addendum to follow by Dr. Schroeder. Current Visit: Yes Qualifiers: Anemia type: unspecified type Qualified Code(s): D64.9 - Anemia, unspecified Gastroenterology - PN: Subj Interval history: CC: Abdominal pain/anemia Patient is seen awake and alert ambulating around room. States she is feeling fairly well however states she just received a B12 injection shortly after that she had a large episode of diarrhea. She denies any melena or hematochezia associated with this. States that this is a normal occurrence following her B12 injections. Denies any abdominal pain. Denies any nausea or vomiting. She is tolerating her diet at present time. Hemoglobin is currently pending at present time. She is for possible discharge home today. She will be scheduled to return in 6-8 weeks for repeat EGD and will be discharged home on twice daily PPI treatment. ROS: Denies shortness of breath or chest pain Exam (Progress Note) - Constitutional Vitals: Period Temp Pulse Resp BP Sys/Hoyt Pulse Ox Last 24 Hr 97.6 F-98.8 F 58-69 16-20 113-148/61-85 95-99 General appearance: normal weight, no acute distress - Head Head exam: Present: normal inspection, normocephalic - Eye Eye exam: Present: other (Lids and conjunctivae unremarkable). Absent: scleral icterus - ENT ENT exam: Present: normal exam, normal oropharynx - Neck Neck exam: Present: normal inspection - Respiratory Respiratory exam: Present: clear to auscultation bilaterally. Absent: rales, rhonchi, wheezes - Cardiovascular Cardiovascular exam: Present: regular rate and rhythm. Absent: diastolic murmur , JVD, systolic murmur - GI/Abdominal GI/Abdominal exam: Present: normal bowel sounds, soft. Absent: ascites, distended, mass, organomegaly, tenderness - Extremities Exam Extremities exam: Present: normal inspection, full ROM - Back Exam Back exam: Present: normal inspection - Neurological Exam Neurological exam: Present: alert, oriented X3 - Psychiatric Psychiatric exam: Present: normal affect, normal mood - Skin Skin exam: Present: normal color, warm, dry Results - Labs CBC & BMP: 12/27/16 06:04 12/26/16 04:52 Lab Results: I have reviewed the past 24 hour labs <Oracio Schroeder - Last Filed: 12/28/16 12:53> Exam (Progress Note) - Constitutional Vitals: Period Temp Pulse Resp BP Sys/Hoyt Pulse Ox Last 24 Hr 97.6 F-98.8 F 58-81 16-20 113-148/61-85 95-99 Results - Labs CBC & BMP: 12/28/16 11:01 12/26/16 04:52
[2016-12-28 11:09] LABS: Hematocrit 32.3 VOL% (35.7-47.0); Hemoglobin 10.4 GM/DL (12.0-16.0)
[2016-12-28 12:07] VITALS: BP 136/77
--- NOTE | 2016-12-28 14:16 | Discharge Summary ---
Hospital Course - Hospital Course Hospital Course: Ms Ruiz was admitted for evaluation of abdominal pain. Abdominal pelvic CT in the ER revealed mild gastric wall thickening. She was found to be anemic. Iron panel revealed, iron deficiency anemia, vitamin B12 and folic acid anemia. GI was consulted. EGD revealed acute duodenal ulcer. She was initiated on appropriate therapy. She was encouraged to discontinued NSAIDs. By discharge she had met maximum benefit of hospitalization with follow-up with GI as an outpatient. I spent 35 minutes coordinating this discharge. Of note, the patient had asymptomatic pyuria. She was treated with appropriate antibiotics for correct duration. - Time spent with patient Time with patient DS: Greater than 30 minutes Diagnosis - Discharge Diagnosis (1) PUD (peptic ulcer disease) Status: Acute (2) Anemia Status: Acute Discharge Plan - Discharge Data Disposition: Disch To Home/Self Care Condition at Discharge: Stable Discharge Diet: advance to your usual diet Activity: resume usual activities as tolerated - Discharge Medications New Cyanocobalamin (Vitamin B-12) [Vitamin B-12] 5,000 mcg PO DAILY #30 tab.rapdis Folic Acid Tab 1 mg PO DAILY #30 tablet Pantoprazole Tab [Protonix Tab] 40 mg PO BID #60 tablet Continue Saxagliptin HCl/Metformin HCl [Kombiglyze Xr 2.5-1,000 mg Tab] 1 each PO BID Meloxicam [Mobic] 15 mg PO DAILY Duloxetine HCl [Duloxetine] 30 mg PO DAILY Rosuvastatin [Crestor] 10 mg PO DAILY Hydrocodone/Acetaminophen [Hydrocodon-Acetaminophn 10-325] 1 each PO QID PRN PRN Reason: Pain Gabapentin 600 mg PO QID Benazepril/Hydrochlorothiazide [Benazepril-Hctz 10-12.5 mg Tab] 1 each PO DAILY ARIPiprazole [Abilify] 5 mg PO BEDTIME Quetiapine Fumarate 100 mg PO BEDTIME buPROPion HCl [Bupropion Xl] 300 mg PO DAILY clonazePAM TAB [KlonoPIN] 0.5 mg PO TID - Follow Up or Referral - Forms/Instructions Exam - Constitutional Vitals: Period Temp Pulse Resp BP Sys/Hoyt Pulse Ox Last 24 Hr 97.6 F-98.8 F 58-81 16-20 113-148/61-85 95-99 General appearance: normal weight, no acute distress - Head Head exam: Present: normal inspection, normocephalic, atraumatic - Eye Eye exam: Present: EOMI Pupils: Present: BERNARDO - ENT ENT exam: Present: normal exam - Neck Neck exam: Present: normal inspection - Respiratory Respiratory exam: Present: clear to auscultation bilaterally. Absent: accessory muscle use, prolonged expiratory phase, wheezes - Cardiovascular Cardiovascular exam: Present: regular rate and rhythm. Absent: bradycardia, irregular rhythm, systolic murmur - GI/Abdominal GI/Abdominal exam: Present: normal bowel sounds Discharge Results Procedures and tests throughout hospitalization: Pending Orders 12/26/16 Red Blood Cells Leuko Red Stat Labs on day of discharge: Labs from last 24 hours 12/28/16 12/28/16 12/28/16 11:29 11:01 08:20 Hgb 10.4 L Hct 32.3 L POC Glucose 130 H 133 H Transferrin Blood Type Antibody Screen Crossmatch Blood Bank Comment 12/26/16 12/26/16 Unknown 04:52 Hgb Hct POC Glucose Transferrin 199 L Blood Type Cancelled Antibody Screen Cancelled Crossmatch See Detail Blood Bank Comment Cancelled DS: Provider Date of admission: 12/24/16 21:53 Primary care physician: . No PCP Attending physician on admission: Mily Mo MD Discharging clinician: Shamika Caruso MD Expected date of discharge: 12/28/16
== END 2016-12-28 15:52 | disposition home or self-care (01) | DRG 378 ==
LOC: N.ED 16:40 → N.EDINP 21:50 → SUATTDRO 21:50 → N.2E 22:15
PROVIDERS: ADMIT Family Medicine; ATTEND Internal Medicine